=== PATIENT | female | born 1945 | race Two or more races ===

== ENCOUNTER 2018-06-30 14:21 | Inpatient (IN) | payer MEDICARE, OTHER ==
--- NOTE | 2018-06-30 15:30 | ED Physician Chart ---
ED Chief Complaint/HPI - Patient Information Date Seen:: 06/30/18 Time Seen:: 15:25 Chief Complaint:: agitation psychosis History of Present Illness:: 72 yr old female from [facility] with hx dementia gerd copd dm moderate mental retardation seizures cyclothymia here for [facility] psych evaluation Allergies:: Allergies Allergy/AdvReac Type Severity Reaction Status Date / Time Penicillins [PCN] Allergy Verified 06/30/18 14:49 Vitals:: Vital Signs - 8 hr 06/30/18 14:49 Temp 98.2 F HR 108 RR 18 BP 110/63 O2 Sat % 97 ED Review of Systems - Review of Systems General/Constitutional: No fever Skin: No skin lesions, No rash, No bruising Head: No headache Eyes: No loss of vision ENT: No earache, No nasal drainage, No sore throat, No tinnitus Neck: No neck pain, No swelling, No thyromegaly, No stiffness, No mass noted Cardio Vascular: No chest pain, No palpitations, No PND, No orthopnea, No edema Pulmonary: No SOB, No cough, No sputum, No wheezing GI: No nausea, No vomiting, No diarrhea, No pain, No melena, No hematochezia, No constipation, No hematemesis G/U: No dysuria, No frequency, No hematuria Musculoskeletal: No bone or joint pain, No back pain, No muscle pain Endocrine: No polyuria, No polydipsia Psychiatric: No prior psych history, No depression, No anxiety, No suicidal ideation Hematopoietic: No bruising, No lymphadenopathy Allergic/Immuno: No urticaria, No angioedema Neurological: No syncope, No focal symptoms, No weakness, No paresthesia, No headache, No seizure, No dizziness, No confusion, No vertigo ED Past Medical History - Past Medical History Past Medical History: DM, CHF, Asthma/COPD, Seizures, Dementia (bipolar disorder hypokalemia back pain) Family Medical History - Family Member Father History Unknown: Yes ED Physical Exam - Physical Examination General/Constitutional: Alert Head: Atraumatic Eyes: Lids, conjuctiva normal Skin: Nl inspection, No rash, No skin lesions, No ecchymosis, Well hydrated, No lymphadenopathy Other Skin comments:: lower leg gator area discoloration ENMT: External ears, nose nl, Nasal exam nl, Lips, teeth, gums nl Neck: Nontender Respiratory: Nl effort/Exclusion Cardio Vascular: RRR, No murmur, gallop, rubs, NL S1 S2 GI: No tenderness/rebounding/guarding, No organomegaly, No hernia, Normal BS's, Nondistended, No mass/bruits, No McBurney tenderness : No CVA tenderness Extremities: No tenderness or effusion, Full ROM, normal strength in all extremities, No edema, Normal digits & nails Neuro/Psych: Alert/oriented, DTR's symmetric, Normal sensory exam, Normal motor strength, Judgement/insight normal, Mood normal, Normal gait, No focal deficits Misc: Normal back, No paraspinal tenderness ED Assessment - Assessment General Assessment: agitation psychosis for geropsych eval ED Septic Shock - . Is Septic Shock (SBP<90, OR Lactate>4 mmol\L) present?: No - <6hrs of presentation: Vital Signs: Vital Signs - 8 hr 06/30/18 14:49 Temp 98.2 F HR 108 RR 18 BP 110/63 O2 Sat % 97 ED Reassessment (Disposition) - Reassessment Reassessment:: dementia psychosis for geropsych eval - Diagnosis Diagnosis:: as above - Patient Disposition Discharge/Transfer:: Acute Care w/in this hosp Admitted to:: Med/Surg Condition at Disposition:: Stable
[2018-06-30 16:00] LABS: % BASOPHILS 0.7 % (0.0-2.0); % EOSINOPHILS 0.5 % (0.0-5.0); % LYMPHOCYTES 30.9 % (20.0-50.0); % MONOCYTES 12.9 % (2.0-10.0); HEMATOCRIT 39.3 % (41.0-60); LYMPHOCYTE ABSOLUTE 1.6 Th/cmm (1.5-3.0); MEAN CORPUSCULAR HEMOGLOBIN 29.7 pg (27.0-31.0); MEAN PLATELET VOLUME 8.2 fl; MONOCYTE ABSOLUTE 0.7 Th/cmm (0.3-1.0); NEUTROPHILE ABSOLUTE 2.9 Th/cmm (1.8-8.0); PLATELET COUNT 162 Th/cmm (150-400); RED BLOOD COUNT 4.37 Mil/cmm (3.80-5.20); RED CELL DISTRIBUTION WIDTH 14.3 % (11.5-20.0); WHITE BLOOD COUNT 5.2 Th/cmm (4.8-10.8)
[2018-06-30 16:43] LABS: BUN - UREA NITROGEN 12 mg/dL (7-25); CARBON DIOXIDE 28.4 mEq/L (21.0-31.0); CHLORIDE 99 mEq/L (98-107); CREATININE - SERUM 0.5 mg/dL (0.6-1.2); GLUCOSE 101 mg/dL (70-105); POTASSIUM SERUM 3.4 mEq/L (3.5-5.1); SODIUM SERUM 135 mEq/L (136-145)
[2018-06-30 16:44] LABS: ALB/GLOB RATIO 1.2 (1.0-1.8); ALBUMIN 3.4 gm/dL (3.7-5.3); ALKALINE PHOSPHATASE 80 U/L (34-104); BILIRUBIN,TOTAL 0.4 mg/dL (0.3-1.0); CALCIUM SERUM 9.2 mg/dL (8.6-10.3); GFR AFRICAN-AMERICAN > 60.0 ml/min (>90); GFR NON AFRICAN-AMERICAN > 60.0 ml/min; PHENYTOIN < 2.5 ug/ml (10.0-20.0); SGOT 21 U/L (13-39); SGPT/ALT 5 U/L (7-52); TOTAL PROTEIN,SERUM 6.3 gm/dL (6.0-8.3)
[2018-06-30 17:49] VITALS: BP 119/87
[2018-06-30] MEDS ORDERED: Maalox 30 mL Cup PO PRN (17:58)
[2018-06-30] MEDS ORDERED: Magnesium Hydroxide (MOM) 30 mL UDC PO PRN (17:58)
[2018-06-30] MEDS ORDERED: Non-Formulary Item 1 EA (Diclofenac Sodium [Voltaren] 100 GM) TP PRN (18:54)
[2018-06-30] MEDS ORDERED: PHENAZOPYRIDINE HCL 200 MG PO PRN (22:55)
[2018-07-01] MEDS: Levothyroxine 0.05 Mg Tab PO SCH (06:53)
[2018-07-01] MEDS: Calcium Carb/Vit D 500 mg/200 U Tab PO SCH (08:34)
[2018-07-01] MEDS: Benztropine 1 MG TAB PO SCH (08:34)
[2018-07-01] MEDS: Multivitamin Tab PO SCH (08:34)
[2018-07-01] MEDS ORDERED: Potassium Chloride 20 mEq ER Tab PO SCH (09:00)
[2018-07-01] MEDS: Peg-400/Propylene Ophth Soln 5 mL Bottle EACH EYE SCH ×3 (09:33→21:53)
--- NOTE | 2018-07-01 13:09 | History & Physical ---
ADMIT DATE: 06/30/2018 IDENTIFYING INFORMATION: The patient is a 72-year-old female. CHIEF COMPLAINT: No answer. HISTORY OF PRESENT ILLNESS: The patient was referred from [facility]. She was put on hold by Dr. Caldwell dateharmeet yesterday because she was talking to herself with a history of mental retardation. The patient herself was a poor historian, was talking to herself, unable to participate in a meaningful conversation or make safe plan for self-care. PAST PSYCHIATRIC HISTORY: Psychosis and depression, dementia. ALLERGIES: THE PATIENT IS ALLERGIC TO PENICILLIN. MEDICAL HISTORY: The patient with a history of diabetes mellitus, congestive heart failure, asthma, COPD, seizure disorder with a history of hypokalemia, bipolar disorder, back pain. FAMILY AND SOCIAL HISTORY: The patient came from [facility] which is a nursing facility. The patient is unable to participate in meaningful conversation or give any more information. MENTAL STATUS EXAMINATION: The patient is appropriately dressed, not well groomed. She was in a Snow chair. She was alert, unable to tell me her age, where she is, why she is here. The patient with a history of mental retardation, unable to participate in a meaningful conversation or make safe plan for self-care. She is unpredictable, impulsive, needing redirection. Long and short term memory is poor. Insight and judgment is impaired. Talking to herself, hallucinating, paranoid. IMPRESSION: Bipolar disorder with psychosis in moderate mental retardation. MEDICAL DIAGNOSES: Seizure disorder, diabetes mellitus, chronic obstructive pulmonary disease, asthma, urinary incontinence, urinary tract infection, hypothyroidism, gastroesophageal reflux disease, and constipation. INITIAL TREATMENT PLAN: The patient will be continued on medication, which she is on Paxil 20 mg daily. We will do group therapy, milieu therapy, and individual therapy. ESTIMATED LENGTH OF STAY: 3-7 days. DISCHARGE CRITERIA: Decrease in psychosis, agitation. After discharge, outpatient. The patient also would like to add she is on Depakote 500 mg twice a day. [facility]# [id number]
[2018-07-01] MEDS: Potassium Chloride 20 mEq ER Tab PO SCH ×2 (13:50→21:54)
[2018-07-01] MEDS: Nitrofurantoin, Macrocrystals 50 mg Cap PO SCH (21:52)
[2018-07-01] MEDS: Fluticasone Propionate Nasal 1 SPR SPR NS SCH (21:52)
--- NOTE | 2018-07-02 00:31 | Consultation ---
DATE OF CONSULTATION: 07/01/2018 INTERNAL MEDICINE CONSULTATION REASON FOR CONSULTATION: Includes seizure disorder, dementia, severe depression, diabetes mellitus, COPD, urine incontinence, question of urinary tract infection, gastroesophageal reflux disease, hypothyroidism, mental retardation, chronic constipation. HISTORY OF PRESENT ILLNESS: This is a 72-year-old female resident of [facility]. The patient talking to herself, very confused, only momentarily stop when I asked her to take a deep breath, but continuously talking to herself, actively hallucinating. The patient placed on a 5150 hold and admitted to the Geropsych Unit. The patient unable to provide any history. Case discussed with patient and RN at bedside. All other history obtained through the review of medical records. PAST MEDICAL HISTORY: As mentioned above. CURRENT MEDICATIONS: Includes Cogentin 0.5 mg once a day, vitamin D with calcium 1 tablet once a day, Sinemet 25/100 mg one tablet twice a day, Keflex 500 mg three times a day, vitamin D 1000 unit once a day, Bentyl 20 mg 3 times a day, Depakote 500 mg twice a day, Colace 100 mg twice a day, estradiol 1 mg on Sunday and Sunday, Pepcid 20 mg once a day, Flonase 2 sprays once a day, Lasix 20 mg once a day, Synthroid 50 mcg once a day, milk of magnesia 30 mL at bedtime p.r.n., Motrin 600 mg q. 6 hours p.r.n. for moderate pain, lorazepam 0.5 mg q. 4 hours p.r.n. for anxiety, Antivert 25 mg q. 8 hours p.r.n. for dizziness, multivitamin 1 tablet once a day, nitrofurantoin 50 mg at bedtime, Zofran 4 mg q. 8 hours p.r.n. nausea and vomiting, Ditropan 10 mg at bedtime, Paxil 20 mg once a day, Dilantin 300 mg once a day, KCl 20 mEq 3 times a day, Mysoline 50 mg at bedtime, artificial tear drops in eyes 3 times a day, Ambien 5 mg at bedtime. Physical EXAMINATION: VITAL SIGNS: At the present time, height 1.52 meters, weight 75.75 kg, BMI 32.6, temperature 97.9 and afebrile, pulse 85 and regular, respiratory rate 18, blood pressure 110/60, oxygen saturation 96% on room air. HEENT: Otherwise, unremarkable. NECK: Supple. No JVD, bruit, or lymphadenopathy. LUNGS: Clear. Good air entry bilaterally. No rales or rhonchi. CARDIOVASCULAR: S1, S2 normal limit. ABDOMEN: Soft. No CVA tenderness. No rebound, no guarding. Bowel sound is active. EXTREMITIES: Chronic venous stasis changes noted on both shins. No leg edema noted. Dorsalis pedis palpable. CENTRAL NERVOUS SYSTEM: The patient constantly talk to herself and not able to focus on the commands except taking a deep breath for a few breath and then started talking nonstop by self, will not participate in any other activity or distraction offered. CENTRAL NERVOUS SYSTEM: Nonfocal. Able to move all extremities. Currently, sitting in a Snow chair. MUSCULOSKELETAL: No clubbing, cyanosis, or synovitis. ALLERGIES: PENICILLIN. LABORATORY TESTS: WBC 5.2, hemoglobin 13, MCV 90, platelet count of 162,000, neutrophil 55. Sodium 135, potassium 3.4, chloride 99, bicarbonate 28, BUN 12, creatinine 0.5, glucose 101, calcium 9.2. Liver panel unremarkable. Dilantin level not detected. Valproic acid 62. ASSESSMENT AND PLAN: 1. Seizure disorder. The patient's Dilantin level is not detectable. Continue Dilantin, valproic acid, and Mysoline. Seizure precaution. 2. Chronic obstructive pulmonary disease, clinically stable. 3. Urinary incontinence, rule out urinary tract infection. We will do the straight cath for UA and urine culture. 4. Gastroesophageal reflux disease. Continue Pepcid. 5. Hypothyroidism. Check a TSH and check for the thyroid panel and continue with the same. 6. Diabetes mellitus. Current sugar is normal. We will check hemoglobin A1c in the morning and go from there. Currently not on any medication. 7. Dementia and mental retardation by history with depression and psychosis. Further plan per Dr. Caldwell. Dr. Byers will follow this patient from 07/02/2018. JOB# [id number]
[2018-07-02] MEDS: Levothyroxine 0.05 Mg Tab PO SCH (07:02)
[2018-07-02] MEDS: Potassium Chloride 20 mEq ER Tab PO SCH ×3 (09:09→21:20)
[2018-07-02] MEDS: Calcium Carb/Vit D 500 mg/200 U Tab PO SCH (09:09)
[2018-07-02] MEDS: Peg-400/Propylene Ophth Soln 5 mL Bottle EACH EYE SCH ×3 (09:09→21:22)
[2018-07-02] MEDS: Benztropine 1 MG TAB PO SCH (09:09)
[2018-07-02] MEDS: Multivitamin Tab PO SCH (09:09)
[2018-07-02] MEDS: Nitrofurantoin, Macrocrystals 50 mg Cap PO SCH (21:22)
[2018-07-02] MEDS: Fluticasone Propionate Nasal 1 SPR SPR NS SCH (21:22)
--- NOTE | 2018-07-03 00:31 | Progress Notes ---
DATE: 07/02/2018 Case was discussed with staff of the patient and reviewed records. The patient continues to be confused and talking to herself. She seems to be developmentally disabled. She continues to be psychotic, needing redirection. She continues to be unable to participate in a meaningful conversation or make safe plan for her self-care. No side effects to the medication, no sedation, and no nausea. We will continue to work with the patient in group therapy, milieu therapy, and adjust the medication as needed. JOB# [id number]
[2018-07-03] MEDS: Levothyroxine 0.05 Mg Tab PO SCH (06:42)
[2018-07-03] MEDS: Multivitamin Tab PO SCH (09:51)
[2018-07-03] MEDS: Peg-400/Propylene Ophth Soln 5 mL Bottle EACH EYE SCH ×3 (09:51→21:58)
[2018-07-03] MEDS: Benztropine 1 MG TAB PO SCH (09:51)
[2018-07-03] MEDS: Potassium Chloride 20 mEq ER Tab PO SCH ×3 (09:53→21:59)
[2018-07-03] MEDS: Calcium Carb/Vit D 500 mg/200 U Tab PO SCH (09:54)
[2018-07-03] MEDS: Fluticasone Propionate Nasal 1 SPR SPR NS SCH (21:56)
[2018-07-03] MEDS: Nitrofurantoin, Macrocrystals 50 mg Cap PO SCH (21:57)
--- NOTE | 2018-07-04 05:19 | Progress Notes ---
DATE: 07/03/2018 SUBJECTIVE: Chart reviewed and the patient interviewed. Also, discussed the patient's condition with the staff and reviewed records and labs. The patient is still confused and is still easily agitated and in irritable mood. The patient also is still suspicious and paranoid and resisting care. The patient also still was not taking her medications consistently and she still needs lots of redirections and close monitoring. She also is still combative with the staff when they try to help her with her ADLs. Otherwise, the patient is exhibiting no side effects of medications. ASSESSMENT: The patient is still psychotic and still needs close monitoring. TREATMENT PLAN: Continue to monitor her behavior and her condition closely. Also, continue adjusting psychotropic medications and work on behavioral modification. JOB# [id number]
--- NOTE | 2018-07-04 06:08 | Progress Notes ---
DATE: 07/03/2018 DATE OF SERVICE: 07/03/2018 SUBJECTIVE: The patient seen and examined. The patient is lying in the bed. The patient is well known to me from her stay at [facility]. The patient has multiple medical problems. The patient is admitted under the psychiatrist's care. The patient does not provide a meaningful history. PHYSICAL EXAMINATION: VITAL SIGNS: Temperature is 97.6, pulse is 74, respiratory rate is 18, blood pressure is 144/66. HEENT: Poor dentition. No facial asymmetry. NECK: Supple. HEART: Regular. CHEST AND LUNGS: Equal in expansion, no expiratory wheezing. ABDOMEN: Soft, no guarding, no rigidity. Bowel sounds are present. No palpable mass. EXTREMITIES: No edema. NEUROLOGIC: Unable to get meaningful history from the patient. CLINICAL IMPRESSION: 1. Seizure disorder. 2. Parkinson's disease. 3. High risk for fall. 4. Dementia. 5. Psychotic disorder. 6. Hypothyroidism. 7. History of chronic allergies. PLAN: 1. Fall precautions. 2. Seizure medication. 3. Seizure precautions. 4. Psych medication. 5. Psych followup. 6. General nursing care. 7. Nutritional support. 8. Follow labs. 9. We will continue to follow this patient during the stay in the hospital. 10. Medication. Admission list has been reviewed. 11. Continue Synthroid. JOB# [id number]
[2018-07-04] MEDS: Levothyroxine 0.05 Mg Tab PO SCH (06:55)
[2018-07-04] MEDS: Peg-400/Propylene Ophth Soln 5 mL Bottle EACH EYE SCH ×3 (09:28→20:32)
[2018-07-04] MEDS: Calcium Carb/Vit D 500 mg/200 U Tab PO SCH (09:29)
[2018-07-04] MEDS: Multivitamin Tab PO SCH (09:29)
[2018-07-04] MEDS: Potassium Chloride 20 mEq ER Tab PO SCH ×3 (09:31→20:32)
[2018-07-04] MEDS: risperiDONE 1 mg/mL 30 mL Bottle PO SCH (09:51)
[2018-07-04] MEDS: Nitrofurantoin, Macrocrystals 50 mg Cap PO SCH (20:40)
[2018-07-04] MEDS: Fluticasone Propionate Nasal 1 SPR SPR NS SCH (20:40)
--- NOTE | 2018-07-04 22:03 | Progress Notes ---
DATE: 07/04/2018 SUBJECTIVE: Chart reviewed and the patient interviewed. Also discussed the patient's condition with the staff and reviewed records and labs. The patient continued to be confused. The patient was sitting in the gurney chair, mumbling and talking to herself. The patient also during my interview was pointing out to imaginary objects. She also is still restless and she is still resisting care and fighting with staff and peers. Otherwise, the patient is also still uncooperative with taking her medications and refused to take her medications. ASSESSMENT: The patient is still psychotic and confused and considered to be gravely disabled. TREATMENT PLAN: Continue to monitor her behavior and her condition closely. Also, we will add Seroquel in a dose of depression. We will add Risperdal in a dose of 1 mg twice a day and will continue to follow up closely. JOB# [id number]
--- NOTE | 2018-07-04 23:00 | Progress Notes ---
DATE: PATIENT'S ID: 72-year-old female. SUBJECTIVE: The patient seen and examined. The patient is lying in the bed, unable to get meaningful history from the patient. PHYSICAL EXAMINATION: VITAL SIGNS: Temperature 97.4, pulse is 85, respiratory rate is 18, blood pressure 136/75. HEENT: No facial asymmetry. NECK: Supple, no JVD. HEART: Regular. CHEST AND LUNG: Equal in expansion, no expiratory wheezing. ABDOMEN: Soft. No guarding, no rigidity. Bowel sounds present. No palpable mass. EXTREMITIES: No edema. CLINICAL IMPRESSION: 1. Hypothyroidism. 2. Parkinson's. 3. Degenerative joint disease. 4. Psychotic disorder. 5. Allergic rhinosinusitis. 6. Post-menopausal. 7. High risk for fall. 8. Debility. PLAN: 1. Psychiatric evaluation and management deferred to psychiatrist. 2. Continue Parkinson's and seizure medication, provide fall precautions, general nursing care, nutritional support and continuation of current treatment plan. We will continue to follow this patient during the stay in the hospital. JOB# [id number]
[2018-07-05] MEDS: Levothyroxine 0.05 Mg Tab PO SCH (06:45)
[2018-07-05] MEDS: Multivitamin Tab PO SCH (09:44)
[2018-07-05] MEDS: Calcium Carb/Vit D 500 mg/200 U Tab PO SCH (09:46)
[2018-07-05] MEDS: risperiDONE 1 mg/mL 30 mL Bottle PO SCH ×2 (09:50→16:37)
[2018-07-05] MEDS: Peg-400/Propylene Ophth Soln 5 mL Bottle EACH EYE SCH ×3 (09:51→21:32)
[2018-07-05] MEDS: Potassium Chloride 20 mEq ER Tab PO SCH ×3 (09:53→21:32)
[2018-07-05] MEDS: Nitrofurantoin, Macrocrystals 50 mg Cap PO SCH (21:00)
[2018-07-05] MEDS: Fluticasone Propionate Nasal 1 SPR SPR NS SCH (21:32)
[2018-07-06] MEDS: Levothyroxine 0.05 Mg Tab PO SCH (06:42)
[2018-07-06] MEDS: risperiDONE 1 mg/mL 30 mL Bottle PO SCH ×3 (10:06→18:29)
[2018-07-06] MEDS: Calcium Carb/Vit D 500 mg/200 U Tab PO SCH (10:08)
[2018-07-06] MEDS: Multivitamin Tab PO SCH (10:13)
[2018-07-06] MEDS: Potassium Chloride 20 mEq ER Tab PO SCH ×3 (10:14→20:28)
[2018-07-06] MEDS: Peg-400/Propylene Ophth Soln 5 mL Bottle EACH EYE SCH ×3 (10:20→20:27)
--- NOTE | 2018-07-06 13:21 | Progress Notes ---
DATE: 07/05/2018 SUBJECTIVE: Chart reviewed and the patient interviewed. Also, discussed the patient's condition with the staff and reviewed records and labs. The patient continued to be confused and restless. The patient also is fidgety while sitting on the gurney chair. The patient also is still actively hallucinating and talking nonsense and pointing out to imaginary objects. She is also unable to carry on coherent conversation or to follow simple directions or simple commands. She also is still resisting care and at times refused to take her medications. ASSESSMENT: The patient is still agitated and psychotic. TREATMENT PLAN: Continue monitoring behavior closely. Also, continue adjusting psychotropic medications and work on behavioral modification. JOB# [id number]
--- NOTE | 2018-07-06 19:18 | Progress Notes ---
DATE: IDENTIFICATION: A 72-year-old female. SUBJECTIVE: The patient seen and examined. The patient is lying in the bed. Discussed with staff. No new event. Unable to get meaningful history from the patient. PHYSICAL EXAMINATION: VITAL SIGNS: Temperature 98.4, pulse is 66, respiratory rate is 18, blood pressure 140/80. HEENT: No facial asymmetry. Poor dentition noted. NECK: Supple, no JVD. HEART: Regular, no murmur. CHEST AND LUNGS: Equal in expansion, no expiratory wheezing. ABDOMEN: Soft, no guarding, no rigidity. Bowel sounds are present. No palpable mass. EXTREMITIES: No edema. NEUROLOGIC: Unable to assess. CLINICAL IMPRESSION: 1. Hypothyroidism. 2. Parkinson's disease. 3. Psychotic disorder. 4. Degenerative joint disease. 5. High risk for fall. PLAN: 1. Psychiatric evaluation and management deferred to psychiatrist. 2. Medication management. 3. Fall precautions. 4. General nursing care. 5. Continue current treatment plan. 6. Nutritional support. 7. Care plan reviewed. JOB# [id number]
[2018-07-06] MEDS: Fluticasone Propionate Nasal 1 SPR SPR NS SCH (20:27)
[2018-07-06] MEDS: Nitrofurantoin, Macrocrystals 50 mg Cap PO SCH (20:28)
--- NOTE | 2018-07-07 02:29 | Progress Notes ---
DATE: 07/06/2018 SUBJECTIVE: The patient was seen and evaluated. The patient's chart reviewed. Covering for Dr. Caldwell. IDENTIFYING DATA: A 72-year-old female who was brought in here by Shara marcus. The patient was observed to be talking to herself and easily agitated. Today on [id number] evaluation, the patient is restless, fidgety, disengaged in the interview and does not want to participate and observed to be responding and talking to herself. MENTAL STATUS EXAMINATION: Responding and easily agitated. MEDICATION RECONCILIATION: Reviewed. Lasix, Synthroid and Ativan as needed. ASSESSMENT AND PLAN: The patient is a 72-year-old female who presents easily irritable, agitated, disengaged, suspicious and minimally interactive. We will continue with the current medications of Depakote 500 mg p.o. b.i.d., current Depakote level is at 62.6; risperidone 1 mg p.o. b.i.d. and Paxil. JOB# [id number]
[2018-07-07] MEDS: Levothyroxine 0.05 Mg Tab PO SCH (06:45)
[2018-07-07] MEDS: Peg-400/Propylene Ophth Soln 5 mL Bottle EACH EYE SCH ×3 (08:46→22:00)
[2018-07-07] MEDS: Multivitamin Tab PO SCH (08:48)
[2018-07-07] MEDS: Potassium Chloride 20 mEq ER Tab PO SCH ×3 (08:48→21:58)
[2018-07-07] MEDS: Calcium Carb/Vit D 500 mg/200 U Tab PO SCH (08:50)
[2018-07-07] MEDS: risperiDONE 1 mg/mL 30 mL Bottle PO SCH ×2 (08:51→18:00)
[2018-07-07 16:51] LABS: ANION GAP 11.4 (7.0-16.0); BUN - UREA NITROGEN 23 mg/dL (7-25); CALCIUM SERUM 8.9 mg/dL (8.6-10.3); CARBON DIOXIDE 27.4 mEq/L (21.0-31.0); CHLORIDE 107 mEq/L (98-107); CREATININE - SERUM 0.6 mg/dL (0.6-1.2); GFR AFRICAN-AMERICAN > 60.0 ml/min (>90); GFR NON AFRICAN-AMERICAN > 60.0 ml/min; GLUCOSE 112 mg/dL (70-105); POTASSIUM SERUM 3.8 mEq/L (3.5-5.1); SODIUM SERUM 142 mEq/L (136-145)
[2018-07-07] MEDS: Fluticasone Propionate Nasal 1 SPR SPR NS SCH (22:00)
--- NOTE | 2018-07-08 03:11 | Progress Notes ---
DATE: 07/07/2018 The patient was seen and evaluated. The patient's chart reviewedf. Covering for Dr. Caldwell. Today on [id number] evaluation, nursing staff reporting the patient is observed to be restless, irritable. Today on [id number] upon approach, the patient is able to talk in Urdu, but it does not make any sense what she is talking. She is very incoherent and difficult to understand what she is talking. She just finds herself talking to herself. On mental status examination, she is responding, talking to herself, easily agitated. ASSESSMENT AND PLAN: We will continue with the current medication regimen. She continues to present symptoms very consistent with dementia, severe, needing lot of redirections. We will continue with primary psychiatrist's treatment plan and goals. JOB# [id number]
[2018-07-08] MEDS: Levothyroxine 0.05 Mg Tab PO SCH (06:55)
[2018-07-08] MEDS ORDERED: risperiDONE 1 mg/mL 30 mL Bottle PO SCH (09:00)
[2018-07-08] MEDS: Peg-400/Propylene Ophth Soln 5 mL Bottle EACH EYE SCH ×3 (09:24→21:46)
[2018-07-08] MEDS: Calcium Carb/Vit D 500 mg/200 U Tab PO SCH (09:39)
[2018-07-08] MEDS: Multivitamin Tab PO SCH (09:39)
[2018-07-08] MEDS: Potassium Chloride 20 mEq ER Tab PO SCH ×3 (09:40→21:48)
[2018-07-08] MEDS: Fluticasone Propionate Nasal 1 SPR SPR NS SCH (21:46)
--- NOTE | 2018-07-09 00:21 | Progress Notes ---
DATE: IDENTIFICATION: The patient is a 72-year-old female SUBJECTIVE: The patient is seen and examined. No new event, unable to get meaningful history from the patient. Nurse's notes reviewed. PHYSICAL EXAMINATION: VITAL SIGNS: Temperature 97.2, pulse 90, respiratory rate 18, and blood pressure 106/60. HEENT: Poor dentition. NECK: Supple, no JVD. HEART: Regular. CHEST AND LUNGS: Equal in expansion, no expiratory wheezing. ABDOMEN: Soft. No guarding or rigidity. Bowel sounds are present. No palpable mass. EXTREMITIES: No edema. NEUROLOGIC: Alert, awake, follows simple commands. AVAILABLE DIAGNOSTIC DATA: None for my review. CLINICAL IMPRESSION: 1. Hypothyroidism. 2. Seizure disorder. 3. Psychotic disorder. 4. History of hypertension. 5. Allergic rhinosinusitis. 6. Debility. 7. Fall risk. 8. Parkinson's disease. PLAN: 1. Continue Sinemet along with other medication as the patient is receiving. 2. Fall precautions, general nursing care and nutritional support, PT, OT. 3. Care plan reviewed and discussed with staff. JOB# [id number]
[2018-07-09] MEDS: Levothyroxine 0.05 Mg Tab PO SCH (06:36)
[2018-07-09 08:32] LABS: ALBUMIN 3.3 gm/dL (3.7-5.3); ANION GAP 12.2 (7.0-16.0); BUN - UREA NITROGEN 23 mg/dL (7-25); CARBON DIOXIDE 24.7 mEq/L (21.0-31.0); CHLORIDE 108 mEq/L (98-107); CREATININE - SERUM 0.5 mg/dL (0.6-1.2); GFR AFRICAN-AMERICAN > 60.0 ml/min (>90); GFR NON AFRICAN-AMERICAN > 60.0 ml/min; GLUCOSE 94 mg/dL (70-105); POTASSIUM SERUM 3.9 mEq/L (3.5-5.1); SODIUM SERUM 141 mEq/L (136-145); TOTAL PROTEIN,SERUM 6.7 gm/dL (6.0-8.3)
[2018-07-09 08:33] LABS: ALKALINE PHOSPHATASE 80 U/L (34-104); BILIRUBIN,TOTAL 0.4 mg/dL (0.3-1.0); MAGNESIUM 2.2 mg/dL (1.9-2.7); SGOT 18 U/L (13-39); SGPT/ALT 15 U/L (7-52); URIC ACID 3.7 mg/dL (2.3-6.6)
[2018-07-09] MEDS: Calcium Carb/Vit D 500 mg/200 U Tab PO SCH (09:20)
[2018-07-09] MEDS: Multivitamin Tab PO SCH (09:21)
[2018-07-09] MEDS: Potassium Chloride 20 mEq ER Tab PO SCH ×3 (09:21→21:59)
[2018-07-09] MEDS: risperiDONE 1 mg/mL 30 mL Bottle PO SCH ×2 (09:21→17:55)
[2018-07-09] MEDS: Peg-400/Propylene Ophth Soln 5 mL Bottle EACH EYE SCH ×3 (09:21→21:59)
[2018-07-09 10:34] LABS: HEMOGLOBIN 14.3 gm/dL (12-16); RED BLOOD COUNT 4.75 Mil/cmm (3.80-5.20); WHITE BLOOD COUNT 6.1 Th/cmm (4.8-10.8)
[2018-07-09 10:35] LABS: HEMATOCRIT 43.3 % (41.0-60); MEAN CELL VOLUME 91.1 fl (81-100); MEAN CORPUSCULAR HEMOGLOBIN 30.2 pg (27.0-31.0); MEAN CORPUSCULAR HGB CONC 33.1 pg (28.0-36.0); MEAN PLATELET VOLUME 9.2 fl; PLATELET COUNT 147 Th/cmm (150-400)
[2018-07-09 10:36] LABS: BAND NEUTROPHILE 0 % (0-10); BASOPHIL 0.6 % (0-3); EOSINOPHIL 0.9 % (0-5); LYMPHOCYTE 28.4 % (20-50); MONOCYTE 7.1 % (2-10)
[2018-07-09 10:38] LABS: RED CELL DISTRIBUTION WIDTH 15.1 % (11.5-20.0)
--- NOTE | 2018-07-09 11:03 | Progress Notes ---
DATE: 07/08/2018 SUBJECTIVE: Chart reviewed and the patient interviewed. Also discussed the patient's condition with the staff and reviewed records and labs. The patient continued mumbling and talking to herself and she is still easily agitated and still has disorganized thoughts. The patient also is pointing out to imaginary objects. She also is still impulsive and she is still resisting care at times. On the other hand, seems to be slightly calmer than before, although she is still overtly psychotic. ASSESSMENT: The patient is still psychotic and confused and considered to be gravely disabled. TREATMENT PLAN: Continue monitoring her behavior and condition closely. Also, we will increase Risperdal to 1.5 mg twice a day and we will get Depakote blood level tomorrow and continue Depakote at this time same dose. [facility]# [id number]
--- NOTE | 2018-07-09 19:02 | Progress Notes ---
DATE: 07/09/2018 SUBJECTIVE: Chart reviewed and the patient interviewed. Also discussed the patient's condition with the staff and reviewed records and labs. The patient is still actively hallucinating and she is still actively responding to stimuli. The patient also is still restless and still resisting care. The patient also is still suspicious and seems to be paranoid. Otherwise, the patient is compliant with taking her medications and she is not resisting to taking medications as she was on the beginning of her hospitalization. She still needs close monitoring because of her agitation and because of her resisting care. ASSESSMENT: The patient is still psychotic and is still hallucinating and resisting care. TREATMENT PLAN: Continue to monitor her behavior and her condition closely. Also, we will increase Risperdal to 2 mg twice a day. Also, continue to work on behavior modification and her irritability. JOB# [id number]
[2018-07-09] MEDS: Fluticasone Propionate Nasal 1 SPR SPR NS SCH (22:00)
[2018-07-10] MEDS: Levothyroxine 0.05 Mg Tab PO SCH (06:46)
[2018-07-10] MEDS: Peg-400/Propylene Ophth Soln 5 mL Bottle EACH EYE SCH ×3 (09:00→20:52)
[2018-07-10] MEDS: Potassium Chloride 20 mEq ER Tab PO SCH ×3 (09:00→20:53)
[2018-07-10] MEDS: risperiDONE 1 mg/mL 30 mL Bottle PO SCH ×2 (09:00→18:02)
[2018-07-10] MEDS: Calcium Carb/Vit D 500 mg/200 U Tab PO SCH (10:38)
[2018-07-10] MEDS: Dicyclomine 10 mg Cap PO PRN (10:39)
[2018-07-10] MEDS: Multivitamin Tab PO SCH (10:39)
[2018-07-10] MEDS: Fluticasone Propionate Nasal 1 SPR SPR NS SCH (20:52)
--- NOTE | 2018-07-11 03:52 | Progress Notes ---
DATE: 07/10/2018 SUBJECTIVE: Chart reviewed and the patient interviewed. Also, discussed the patient's condition with the staff and reviewed records and labs. The patient seems to be more agitated and restless today and she is actively hallucinating and still talking to herself and responding to stimuli. The patient also is still having difficulty with her mood and needs lots of redirections. The patient tried to get off bed in the middle of the night, exposing herself to fall risk and staff has to monitor her closely. She has difficulty following directions and following staff instructions. Otherwise, the patient is more compliant with taking her medications with no side effects of medications. ASSESSMENT: The patient is still agitated and confused. TREATMENT PLAN: Continue to monitor her behavior and her condition closely. Also, continue to work on her psychosis. Also, we will add Klonopin in a dose of 0.25 mg twice a day and we will hold if the patient is sedated. Also, we will continue to work on discharge plans. JOB# [id number]
[2018-07-11] MEDS: Levothyroxine 0.05 Mg Tab PO SCH (06:33)
[2018-07-11] MEDS: Multivitamin Tab PO SCH (09:00)
[2018-07-11] MEDS: Dicyclomine 10 mg Cap PO PRN (10:50)
[2018-07-11] MEDS: Potassium Chloride 20 mEq ER Tab PO SCH ×3 (10:51→20:21)
[2018-07-11] MEDS: Calcium Carb/Vit D 500 mg/200 U Tab PO SCH (10:53)
[2018-07-11] MEDS: risperiDONE 1 mg/mL 30 mL Bottle PO SCH ×2 (10:55→17:29)
[2018-07-11] MEDS: Peg-400/Propylene Ophth Soln 5 mL Bottle EACH EYE SCH ×3 (10:56→20:21)
--- NOTE | 2018-07-11 18:31 | Progress Notes ---
DATE: PATIENT'S IDENTIFICATION: 72-year-old female. SUBJECTIVE: The patient seen and examined. The patient does not provide a meaningful history. Hemodynamically stable per nurses' notes and reviewed and discussed with staff as well know about their consent. OBJECTIVE: VITAL SIGNS: Temperature 98.5, pulse is 90, respiratory rate 18, blood pressure 100/58. HEENT: Poor dentition. NECK: Supple, no JVD. HEART: Both heart sounds are regular. CHEST: Lung equal in expansion, no expiratory wheezing. ABDOMEN: Soft. No guarding, no rigidity. Bowel sounds are present. No palpable mass. EXTREMITIES: No edema. NEUROLOGIC: Alert, awake, is trying following commands. AVAILABLE DIAGNOSTIC DATA: None for my review. CLINICAL IMPRESSION: 1. Seizure disorder. 2. Hypothyroidism. 3. Urinary incontinence. 4. Hypertension. 5. Allergic rhinosinusitis. 6. Postmenopausal. 7. Psychotic disorder. 8. Parkinson's disease. 9. Debility 10. Fall risk. PLAN: 1. Psych medication. 2. Psych followup. 3. Sinemet. 4. Allergy medication. 5. Symptoms management. 6. Hormone replacement. 7. Pain management. 8. Synthroid. 9. Ditropan. 10. Seizure medicine. 11. Seizure precaution. 12. Care plan reviewed and discussed with staff. JOB# [id number]
[2018-07-11] MEDS: Fluticasone Propionate Nasal 1 SPR SPR NS SCH (20:21)
--- NOTE | 2018-07-11 22:57 | Progress Notes ---
DATE: 07/11/2018 SUBJECTIVE: Chart reviewed and the patient interviewed. Also discussed the patient's condition with the staff and reviewed records and labs. The patient is still confused and she is still rambling and has disorganized thoughts. The patient also is restless and she is still unable to follow instructions and she is still talking to herself and pointing out to imaginary objects. She was unable to carry on a coherent conversation. On the other hand, the patient is still alert and the patient seems to be calmer and she seems to be less irritable and less agitated. She also is more compliant with taking her medications with no side effects of medications. ASSESSMENT: The patient is still psychotic, but seems to be calmer than before. TREATMENT PLAN: Continue to monitor her behavior and her condition closely. Also, continue adjusting psychotropic medications and work on behavioral modification and also discharge plans. JOB# [id number]
[2018-07-12] MEDS: Levothyroxine 0.05 Mg Tab PO SCH (06:28)
[2018-07-12] MEDS: Multivitamin Tab PO SCH (09:16)
[2018-07-12] MEDS: Calcium Carb/Vit D 500 mg/200 U Tab PO SCH (09:16)
[2018-07-12] MEDS: Potassium Chloride 20 mEq ER Tab PO SCH ×3 (09:16→20:47)
[2018-07-12] MEDS: Peg-400/Propylene Ophth Soln 5 mL Bottle EACH EYE SCH ×3 (09:21→20:48)
[2018-07-12] MEDS: risperiDONE 1 mg/mL 30 mL Bottle PO SCH ×2 (09:25→17:09)
[2018-07-12] MEDS: Fluticasone Propionate Nasal 1 SPR SPR NS SCH (20:48)
--- NOTE | 2018-07-13 04:00 | Progress Notes ---
DATE: 07/12/2018 SUBJECTIVE: Chart reviewed and the patient interviewed. Also discussed the patient's condition with the staff and reviewed records and labs. The patient is still confused and she is still restless and in irritable mood. The patient also still needs lots of redirections. She also is still interacting minimally with others because of her confusion. Also during the interview, the patient is pointing out to imaginary objects and she is also trying to get off the gurney chair and staff has put her in gurney chair because she is trying to get off the bed exposing herself to danger of falling. Otherwise, the patient is compliant with taking her medications and easier to redirect her and not as much as before. JOB# [id number]
[2018-07-13] MEDS: Levothyroxine 0.05 Mg Tab PO SCH (06:33)
[2018-07-13] MEDS: Peg-400/Propylene Ophth Soln 5 mL Bottle EACH EYE SCH ×3 (09:07→21:30)
[2018-07-13] MEDS: risperiDONE 1 mg/mL 30 mL Bottle PO SCH ×2 (09:07→16:50)
[2018-07-13] MEDS: Potassium Chloride 20 mEq ER Tab PO SCH ×3 (09:08→21:31)
[2018-07-13] MEDS: Calcium Carb/Vit D 500 mg/200 U Tab PO SCH (09:08)
[2018-07-13] MEDS: Multivitamin Tab PO SCH (09:10)
[2018-07-13] MEDS: Fluticasone Propionate Nasal 1 SPR SPR NS SCH (21:30)
--- NOTE | 2018-07-14 04:18 | Progress Notes ---
DATE: 07/13/2018 FOLLOWUP PROGRESS NOTE COVERING FOR: Dr. Caldwell. PROGRESS ON THE UNIT: Case was discussed with staff of the patient and reviewed records. This is a well-known case to me as I have seen her before. The patient continues to be confused, restless. She continues to be irritable. She continues to have poor insight, unable to make a safe plan for her self-care, unpredictable, impulsive, needing redirection, minimal interaction, confused isolates in her room. She continues to have poor insight. No side effects to the medication, no sedation, no nausea, no extrapyramidal symptoms. We will continue to work with the patient in group therapy and milieu therapy, adjust the medication as needed. JOB# [id number]
[2018-07-14] MEDS: Levothyroxine 0.05 Mg Tab PO SCH (06:31)
[2018-07-14] MEDS: risperiDONE 1 mg/mL 30 mL Bottle PO SCH ×2 (09:00→17:27)
[2018-07-14] MEDS: Peg-400/Propylene Ophth Soln 5 mL Bottle EACH EYE SCH ×3 (09:15→21:34)
[2018-07-14] MEDS: Multivitamin Tab PO SCH (09:42)
[2018-07-14] MEDS: Potassium Chloride 20 mEq ER Tab PO SCH ×3 (09:42→21:24)
[2018-07-14] MEDS: Calcium Carb/Vit D 500 mg/200 U Tab PO SCH (09:43)
--- NOTE | 2018-07-14 13:27 | Progress Notes ---
DATE: 07/14/2018 Case was discussed with staff of the patient, reviewed records. The patient continues to be confused, unpredictable and impulsive and needing redirection. Working on sending her to a dementia facility. Continues to have poor insight. Continues to be unable to make safe plan for self-care. No side effects to the medication, no sedation, no nausea, no extrapyramidal symptoms. We will continue to work with the patient in group therapy, milieu therapy, and adjust the medication as needed. JOB# [id number]
[2018-07-14] MEDS: Fluticasone Propionate Nasal 1 SPR SPR NS SCH (21:34)
[2018-07-15] MEDS: Levothyroxine 0.05 Mg Tab PO SCH (06:47)
[2018-07-15] MEDS: Potassium Chloride 20 mEq ER Tab PO SCH ×3 (09:44→21:41)
[2018-07-15] MEDS: Calcium Carb/Vit D 500 mg/200 U Tab PO SCH (09:45)
[2018-07-15] MEDS: Multivitamin Tab PO SCH (09:46)
[2018-07-15] MEDS: Peg-400/Propylene Ophth Soln 5 mL Bottle EACH EYE SCH ×3 (09:48→21:41)
[2018-07-15] MEDS: risperiDONE 1 mg/mL 30 mL Bottle PO SCH ×2 (09:49→16:47)
--- NOTE | 2018-07-15 14:02 | Progress Notes ---
DATE: 07/15/2018 Case was discussed with staff of the patient, reviewed records. The patient continues to be ____ confused, stays to herself in bed, unable to take care of her ADLs, unpredictable, impulsive, irritable, easily agitated, compliant with the medication with no side effects, no sedation or nausea, no extrapyramidal symptoms. Also, working on discharge plan. The patient also has seizure disorder and we will continue the patient in group therapy, milieu therapy, adjust medication as needed. JOB# [id number]
[2018-07-15] MEDS: Fluticasone Propionate Nasal 1 SPR SPR NS SCH (21:41)
[2018-07-16] MEDS: Levothyroxine 0.05 Mg Tab PO SCH (06:47)
[2018-07-16] MEDS: Calcium Carb/Vit D 500 mg/200 U Tab PO SCH (09:02)
[2018-07-16] MEDS: Peg-400/Propylene Ophth Soln 5 mL Bottle EACH EYE SCH ×3 (09:02→22:12)
[2018-07-16] MEDS: risperiDONE 1 mg/mL 30 mL Bottle PO SCH ×2 (09:02→16:18)
[2018-07-16] MEDS: Multivitamin Tab PO SCH (09:02)
[2018-07-16] MEDS: Potassium Chloride 20 mEq ER Tab PO SCH ×3 (09:02→22:12)
[2018-07-16] MEDS: Fluticasone Propionate Nasal 1 SPR SPR NS SCH (22:11)
--- NOTE | 2018-07-17 00:34 | Progress Notes ---
DATE: 07/16/2018 Case was discussed with staff of the patient and reviewed records. The patient continues to be confused and internally preoccupied. She continues to be unable to make safe plan for her self-care, unpredictable, impulsive, needing redirection, and unable to make safe plan for her self-care. No side effects to the medication, no sedation, no nausea, and no extrapyramidal symptoms. We will continue to work with the patient in group therapy, milieu therapy, and adjust the medications as needed. JOB# [id number]
[2018-07-17] MEDS: Levothyroxine 0.05 Mg Tab PO SCH (07:07)
[2018-07-17] MEDS: Calcium Carb/Vit D 500 mg/200 U Tab PO SCH (08:55)
[2018-07-17] MEDS: Potassium Chloride 20 mEq ER Tab PO SCH ×3 (08:56→20:59)
[2018-07-17] MEDS: risperiDONE 1 mg/mL 30 mL Bottle PO SCH ×2 (08:56→16:27)
[2018-07-17] MEDS: Peg-400/Propylene Ophth Soln 5 mL Bottle EACH EYE SCH ×3 (08:56→21:18)
[2018-07-17] MEDS: Multivitamin Tab PO SCH (08:56)
[2018-07-17] MEDS: Fluticasone Propionate Nasal 1 SPR SPR NS SCH (21:18)
[2018-07-18] MEDS: Levothyroxine 0.05 Mg Tab PO SCH (06:50)
[2018-07-18] MEDS: Calcium Carb/Vit D 500 mg/200 U Tab PO SCH (09:04)
[2018-07-18] MEDS: Haldol Oral Sol.(concentrate) 10 mg/5 mL Udc PO SCH ×3 (09:04→21:45)
[2018-07-18] MEDS: risperiDONE 1 mg/mL 30 mL Bottle PO SCH ×2 (09:05→16:11)
[2018-07-18] MEDS: Multivitamin Tab PO SCH (09:05)
[2018-07-18] MEDS: Peg-400/Propylene Ophth Soln 5 mL Bottle EACH EYE SCH ×3 (09:05→21:46)
[2018-07-18] MEDS: Potassium Chloride 20 mEq ER Tab PO SCH ×3 (09:05→21:48)
--- NOTE | 2018-07-18 14:17 | Progress Notes ---
DATE: 07/18/2018 Case was discussed with staff of the patient, reviewed records. The patient continues to be confused, unpredictable, internally preoccupied, looking disheveled, unable to make safe plan for self-care or participate in meaningful conversation. Continues to have poor insight, unable to take care of herself or her ADLs and needs help from staff. Dr. Caldwell increased the Haldol yesterday to 2 mg 3 times a day with no side effects, no sedation, no nausea, no extrapyramidal symptoms. We will continue the patient in group therapy, milieu therapy, adjust medication as needed. JOB# [id number]
[2018-07-18] MEDS: Fluticasone Propionate Nasal 1 SPR SPR NS SCH (21:46)
[2018-07-19] MEDS: Levothyroxine 0.05 Mg Tab PO SCH (06:40)
[2018-07-19] MEDS: Calcium Carb/Vit D 500 mg/200 U Tab PO SCH (10:11)
[2018-07-19] MEDS: Dicyclomine 10 mg Cap PO PRN (10:11)
[2018-07-19] MEDS: Haldol Oral Sol.(concentrate) 10 mg/5 mL Udc PO SCH ×3 (10:12→20:32)
[2018-07-19] MEDS: risperiDONE 1 mg/mL 30 mL Bottle PO SCH ×2 (10:17→18:07)
[2018-07-19] MEDS: Peg-400/Propylene Ophth Soln 5 mL Bottle EACH EYE SCH ×3 (10:18→20:34)
[2018-07-19] MEDS: Potassium Chloride 20 mEq ER Tab PO SCH ×3 (10:22→20:33)
[2018-07-19] MEDS: Multivitamin Tab PO SCH (10:23)
[2018-07-19] MEDS: Fluticasone Propionate Nasal 1 SPR SPR NS SCH (20:41)
--- NOTE | 2018-07-20 02:22 | Progress Notes ---
DATE: 07/19/2018 Case was discussed with staff of the patient, reviewed records. The patient is tolerating increase in Haldol; however, she is still unpredictable, impulsive, internally preoccupied. Continues to be unable to care for her ADLs or make safe plan for self-care. Continues to have poor insight. She is sleeping better, eating better. No side effects of the medication, no sedation, no nausea, no extrapyramidal symptoms. We will continue to work with the patient in group therapy, milieu therapy, adjust medication as needed. JOB# [id number]
[2018-07-20] MEDS: Levothyroxine 0.05 Mg Tab PO SCH (06:30)
[2018-07-20] MEDS: Potassium Chloride 20 mEq ER Tab PO SCH ×3 (09:00→21:37)
--- NOTE | 2018-07-20 10:07 | Progress Notes ---
DATE: 07/17/2018 DATE OF SERVICE: 07/17/2018. SUBJECTIVE: Chart reviewed and the patient interviewed. Also discussed the patient's condition with the staff and reviewed records and labs. The patient continued to be confused and she is still actively hallucinating and actively talking to herself. The patient also is still restless and she is still anxious and needs lots of redirections. The patient also is still suspicious and is still paranoid and talking to herself in [place] language. The patient is refusing to take medications and has been taking medications on and off since her admission and she has not been compliant with taking her medications on a regular basis. ASSESSMENT: The patient is still confused and is still considered to be gravely disabled and refused to take her medications. TREATMENT PLAN: After further discussion with the staff as well as with Jaylin, who is the feedlot manager of the place where she is living and has decided that because of her refusal to take medications, will try to give her long-acting injectable at least for the time being that she is more consistent taking her medications. We will start the patient on Haldol HCL 2 mg twice a day to establish nonallergic reaction and non-sensitivity to the Haldol then we will give her long-acting injectable, will plan after that to discharge her to [facility]. Also, I spoke with the patient's sister who agreed to the plan and agreed sending the patient to the [facility] will cause her more confusion and because she does not get along in the middle of other people, along people made her more distracted and more agitated and psychotic. We will go with others plan and will continue to monitor her behavior closely. [facility]# [id number]
[2018-07-20] MEDS: Multivitamin Tab PO SCH (10:42)
[2018-07-20] MEDS: Calcium Carb/Vit D 500 mg/200 U Tab PO SCH (10:44)
[2018-07-20] MEDS: Dicyclomine 10 mg Cap PO PRN (10:45)
[2018-07-20] MEDS: Haldol Oral Sol.(concentrate) 10 mg/5 mL Udc PO SCH ×4 (10:46→21:20)
[2018-07-20] MEDS: Peg-400/Propylene Ophth Soln 5 mL Bottle EACH EYE SCH ×3 (10:50→21:37)
[2018-07-20] MEDS: risperiDONE 1 mg/mL 30 mL Bottle PO SCH ×2 (10:50→18:48)
--- NOTE | 2018-07-20 18:27 | Progress Notes ---
DATE: 07/20/2018 SUBJECTIVE: The patient is currently in the hospital. Staff noting she is refusing medications, concerns about her behaviors. The patient referred from [facility]. Put on hold by Dr. Caldwell. Talking to herself, history of developmental disability. The patient refusing to speak with me. Today, I tried to engage with her. She is sleeping, arousable, but does not want to talk to me whatsoever. Dr. Way noting, the patient remains highly impulsive, unpredictable, unable to care for her basic needs. Ongoing safety concerns. Staff concerned about her impulse behaviors, trying to get up at times, very poor sleep. ASSESSMENT: The patient refusing treatment, care, and medications. We will continue to monitor. Attempt to revisit the patient and attempt to encourage her to take medications. JOB# [id number]
[2018-07-20] MEDS: Fluticasone Propionate Nasal 1 SPR SPR NS SCH (21:37)
[2018-07-21] MEDS: Levothyroxine 0.05 Mg Tab PO SCH (06:54)
[2018-07-21] MEDS: Haldol Oral Sol.(concentrate) 10 mg/5 mL Udc PO SCH ×3 (09:11→20:59)
[2018-07-21] MEDS: Calcium Carb/Vit D 500 mg/200 U Tab PO SCH (09:12)
[2018-07-21] MEDS: risperiDONE 1 mg/mL 30 mL Bottle PO SCH ×2 (09:13→18:38)
[2018-07-21] MEDS: Potassium Chloride 20 mEq ER Tab PO SCH ×3 (09:13→21:00)
[2018-07-21] MEDS: Peg-400/Propylene Ophth Soln 5 mL Bottle EACH EYE SCH ×3 (09:13→20:59)
[2018-07-21] MEDS: Multivitamin Tab PO SCH (09:13)
--- NOTE | 2018-07-21 20:33 | Progress Notes ---
DATE: 07/21/2018 SUBJECTIVE: The patient is currently in the hospital, poor orientation, confusion, noted to be incoherent, unkempt, resistant to care, refusing to take medications, refusing to shower, disrobing in a Snow chair, very confused, needing lot of prompting to take medications . Poor sleep, although she slept better with dosing of Haldol and Ambien. ASSESSMENT: The patient unruly, agitated, ongoing concerns for ability to care for herself, very confused on exam. PLAN: Continue to monitor. Consider dose titration of medications. JOB# [id number]
[2018-07-21] MEDS: Fluticasone Propionate Nasal 1 SPR SPR NS SCH (20:59)
[2018-07-22] MEDS: Levothyroxine 0.05 Mg Tab PO SCH (06:32)
[2018-07-22] MEDS: Potassium Chloride 20 mEq ER Tab PO SCH ×3 (08:51→20:44)
[2018-07-22] MEDS: risperiDONE 1 mg/mL 30 mL Bottle PO SCH ×2 (09:54→16:55)
[2018-07-22] MEDS: Calcium Carb/Vit D 500 mg/200 U Tab PO SCH (16:53)
[2018-07-22] MEDS: Haloperidol Lactate Oral sol. 2 mg/mL Udc PO SCH ×2 (16:54→20:44)
[2018-07-22] MEDS: Peg-400/Propylene Ophth Soln 5 mL Bottle EACH EYE SCH ×2 (16:54→21:07)
[2018-07-22] MEDS: Multivitamin Tab PO SCH (16:54)
[2018-07-22] MEDS: Fluticasone Propionate Nasal 1 SPR SPR NS SCH (21:07)
--- NOTE | 2018-07-22 23:24 | Progress Notes ---
DATE: 07/22/2018 Case was discussed with staff of the patient, reviewed records. The patient continues to be confused, easily agitated, continues to be internally preoccupied. Continues to look disheveled, disorganized and unable to participate in meaningful conversation or make safe plan for her self-care. Unpredictable, impulsive, needing redirection. She is sleeping well, eating well. Staff is also working on discharge plan for this patient. Continues to need at time emergency medication. No side effects with the medication, no sedation, no nausea, no extrapyramidal symptoms and I checked Depakote level is 62.6 which is within acceptable therapeutic range and we will continue to work with the patient in group therapy, milieu therapy, and adjust the medications as needed. JOB# [id number]
[2018-07-23] MEDS: Levothyroxine 0.05 Mg Tab PO SCH (06:54)
[2018-07-23] MEDS: Multivitamin Tab PO SCH (08:51)
[2018-07-23] MEDS: Calcium Carb/Vit D 500 mg/200 U Tab PO SCH (08:51)
[2018-07-23] MEDS: Potassium Chloride 20 mEq ER Tab PO SCH ×3 (08:51→21:00)
[2018-07-23] MEDS: Haloperidol Lactate Oral sol. 2 mg/mL Udc PO SCH ×3 (08:52→21:00)
[2018-07-23] MEDS: risperiDONE 1 mg/mL 30 mL Bottle PO SCH ×2 (08:55→16:16)
[2018-07-23] MEDS: Peg-400/Propylene Ophth Soln 5 mL Bottle EACH EYE SCH ×3 (08:55→21:00)
[2018-07-23] MEDS: Fluticasone Propionate Nasal 1 SPR SPR NS SCH (21:00)
--- NOTE | 2018-07-24 00:15 | Progress Notes ---
DATE: SUBJECTIVE: Chart reviewed and the patient interviewed. Also discussed the patient's condition with the staff and reviewed records and labs. The patient is still confused and still has episodes of irritability and anger. The patient also is still selective in regard to her choice of medications and she is still refusing to take her medications at times. The patient also is still suspicious and is still paranoid. She also is actively hallucinating and actively talking to herself and during the interview she is still pointing out to imaginary objects. Otherwise, the patient still needs redirections. ASSESSMENT: The patient is still psychotic and is still noncompliant with taking her medications. TREATMENT PLAN: The patient is taking Haldol liquid, but she is refusing to take other psychotropic medications. At this time, I will give the patient long acting Haldol for better compliance with her medications. She is currently taking Haldol in a dose of 2 mg 3 times a day in a liquid form. We will give the patient Haldol Deaconate 25 mg per mL and we will continue to work on her compliance and also on her discharge plans. JOB# [id number]
[2018-07-24] MEDS: Levothyroxine 0.05 Mg Tab PO SCH (06:44)
[2018-07-24] MEDS: Multivitamin Tab PO SCH (09:37)
[2018-07-24] MEDS: Calcium Carb/Vit D 500 mg/200 U Tab PO SCH (09:37)
[2018-07-24] MEDS: Haloperidol Lactate Oral sol. 2 mg/mL Udc PO SCH ×3 (09:38→20:20)
[2018-07-24] MEDS: Potassium Chloride 20 mEq ER Tab PO SCH ×3 (09:38→20:21)
[2018-07-24] MEDS: Peg-400/Propylene Ophth Soln 5 mL Bottle EACH EYE SCH ×3 (09:39→20:16)
[2018-07-24] MEDS: risperiDONE 1 mg/mL 30 mL Bottle PO SCH ×2 (09:39→16:26)
[2018-07-24] MEDS: Fluticasone Propionate Nasal 1 SPR SPR NS SCH (20:16)
--- NOTE | 2018-07-24 21:54 | Progress Notes ---
DATE: 07/24/2018 SUBJECTIVE: Chart was reviewed and the patient interviewed. Also discussed the patient's condition with the staff and reviewed records and labs. The patient's affect seems to be slightly brighter and the patient seems to be slightly less agitated and less irritable. She still needs close monitoring and she is still actively hallucinating and pointing out with her finger to imaginary objects, but slightly easier to redirect her. The patient also seems to be less angry and she seems to be slightly more compliant with taking her medications. She is also cooperative in regard to care and ADLs. Otherwise, the patient still will get her long-acting injectable today and planning to discharge the patient tomorrow if she continues to improve. [facility]# [id number]
[2018-07-25] MEDS: Levothyroxine 0.05 Mg Tab PO SCH (06:34)
--- NOTE | 2018-07-25 07:39 | Discharge Summary ---
DATE OF DISCHARGE: 07/25/2018 AGE: 72 SEX: Female. PHYSICIAN: Dr. Caldwell. FINAL DIAGNOSIS AND PRIMARY DIAGNOSIS: Psychosis, unspecified REASON FOR HOSPITALIZATION: The patient was admitted to the hospital from [facility] in [facility] because of acute psychotic episode and because of agitation, irritability, grave disability, actively hallucinating and she was refusing to take medications. HOSPITAL COURSE: The patient continued to be confused and continued to be anxious and in irritable mood. The patient also continued to be actively hallucinating and pointing out to imaginary objects and resisting care and was aggressive with the staff during helping her with her ADLs. The patient also was not compliant with taking her medications and at times the patient was taking her medications and sometimes not. She also continued to be actively hallucinating and psychotic. After talking with the patient's sister, the patient's sister declined to let her go to a nursing facility and she also agreed to give her long-acting injectable for better compliance. The patient started on Haldol Deaconate 25 mg per mL once every month. The patient was calmer and she was less agitated. Also I spoke with the [employer] network systems administrator of the [facility] who agreed that the patient can return home and the patient was discharged back there. The patient had no major medical problems while in the hospital and labs were monitored closely. AFTER DISCHARGE PLANS: The patient discharged from the hospital back to ____ with plans to follow her up there. EXPECTED OUTCOME AFTER DISCHARGE: Fair if the patient continued to take her medications and also continue with her outpatient treatment plans. [facility]# [id number]
[2018-07-25] MEDS: Peg-400/Propylene Ophth Soln 5 mL Bottle EACH EYE SCH ×2 (08:01→14:47)
[2018-07-25] MEDS: Haloperidol Lactate Oral sol. 2 mg/mL Udc PO SCH (08:18)
[2018-07-25] MEDS: Calcium Carb/Vit D 500 mg/200 U Tab PO SCH (08:18)
[2018-07-25] MEDS: risperiDONE 1 mg/mL 30 mL Bottle PO SCH (08:26)
[2018-07-25] MEDS: Potassium Chloride 20 mEq ER Tab PO SCH (08:57)
[2018-07-25] MEDS: Multivitamin Tab PO SCH (08:57)
== END 2018-07-25 16:00 | DRG 885 ==
LOC: ER 14:21 → GERO2 16:52 → GERO 07-01 18:57
PROVIDERS: ADMIT Psychiatry & Neurology Psychiatry; ATTEND Psychiatry & Neurology Psychiatry
DX: F31.9 Bipolar disorder, unspecified (principal); F71 Moderate intellectual disabilities; N39.0 Urinary tract infection, site not specified; F02.81 Dementia in other diseases classified elsewhere, unspecified severity, with behavioral disturbance; G40.909 Epilepsy, unspecified, not intractable, without status epilepticus; E11.9 Type 2 diabetes mellitus without complications; J44.9 Chronic obstructive pulmonary disease, unspecified; K21.9 Gastro-esophageal reflux disease without esophagitis; I50.9 Heart failure, unspecified; N39.41 Urge incontinence; E03.9 Hypothyroidism, unspecified; K59.00 Constipation, unspecified; J30.9 Allergic rhinitis, unspecified; N95.9 Unspecified menopausal and perimenopausal disorder; F29 Unspecified psychosis not due to a substance or known physiological condition; G20 Parkinson's disease; F02.80 Dementia in other diseases classified elsewhere, unspecified severity, without behavioral disturbance, psychotic disturbance, mood disturbance, and anxiety; Z91.81 History of falling; Z88.0 Allergy status to penicillin
CPT/HCPCS: 36415-UA; 80048-TC; 80053-TC; 80164-TC; 80185-TC; 83036-90; 83735-TC; 84443-TC; 84550-TC; 85007-TC; 85025-TC; G0410; J1631; Z7610